=== PATIENT | male | born 1955 | race Caucasian/White ===

== ENCOUNTER 2017-02-06 17:35 | Inpatient (IN) | payer MEDICARE, BC ==
[2017-02-06] MEDS ORDERED: LORazepam 2 MG/ML SYRINGE IV STA (18:06)
[2017-02-06] MEDS ORDERED: SODIUM CHLORIDE 0.9% 1,000 ML with MVI, ADULT NO.4 WITH VIT K 10 ML, THIAMINE 100 MG, F... IV ONE ×4 (18:06)
[2017-02-06] MEDS ORDERED: ONDANSETRON 4 MG/2 ML VIAL IVP STA (18:07)
[2017-02-06] MEDS ORDERED: cloNIDine HCL 0.1 MG TAB PO STA ×3 (18:08→18:49)
--- NOTE | 2017-02-06 18:12 | ED ---
Recheck HPI - General Chief Complaint: Recheck/Abnormal Lab/Rx Stated Complaint: DETOX Time Seen by Provider: 02/06/17 17:48 Source: patient, family, RN notes reviewed Mode of arrival: ambulatory Limitations: no limitations - History of Present Illness Initial Comments: This is a 61-year-old male with a history of alcoholism who states he normally drinks about one fifth of liquor a day who states his last drink was 3 days ago he started having shakes nausea and vomiting a day later. He states he's never gone through DTs before and certainly never anything this bad. He's had no history of seizures no blurry vision he does have generalized shaking he also states he has some numbness to his lower extremities but he relates that to his low back surgery days had in the past. He's had nausea vomiting no diarrhea he denies any fevers chills sweats he does have a mild cough he is a smoker 1 pack of cigarettes per day. No phlegm production no dysuria no hematuria. MD Complaint: other - Related Data Home Medications Medication Instructions Recorded Confirmed Albuterol Nebulized [Ventolin 2.5 mg INHALATION RT-Q6H PRN 02/06/17 02/06/17 Nebulized] Hydrocodone/Acetaminophen [Vicodin 1 tab PO QID PRN 02/06/17 02/06/17 Es 7.5-300 mg Tablet] Lisinopril [Prinivil] 20 mg PO DAILY 02/06/17 02/06/17 Allergies Allergy/AdvReac Type Severity Reaction Status Date / Time No Known Allergies Allergy Verified 02/06/17 18:52 Review of Systems ROS Statement: Those systems with pertinent positive or pertinent negative responses have been documented in the HPI. ROS Other: All systems not noted in ROS Statement are negative. Past Medical History Past Medical History: COPD, Hypertension Additional Past Medical History / Comment(s): ETOH abuse, chronic back pain History of Any Multi-Drug Resistant Organisms: None Reported Past Surgical History: Back Surgery, Orthopedic Surgery Past Psychological History: No Psychological Hx Reported Smoking Status: Current every day smoker Past Alcohol Use History: Heavy Past Drug Use History: Prescription Drug Abuse General Exam - General Exam Comments Initial Comments: This is a well-developed well-nourished awake alert oriented history male he does demonstrate generalized shaking. Limitations: no limitations General appearance: alert, anxious, in distress Head exam: Present: atraumatic, normocephalic, normal inspection Eye exam: Present: normal appearance, PERRL, EOMI. Absent: scleral icterus, conjunctival injection, periorbital swelling ENT exam: Present: mucous membranes dry Neck exam: Present: normal inspection. Absent: tenderness, meningismus, lymphadenopathy Respiratory exam: Present: normal lung sounds bilaterally. Absent: respiratory distress, wheezes, rales, rhonchi, stridor Cardiovascular Exam: Present: normal rhythm, tachycardia. Absent: systolic murmur, diastolic murmur, rubs, gallop, clicks GI/Abdominal exam: Present: soft, normal bowel sounds. Absent: distended, tenderness, guarding, rebound, rigid Extremities exam: Present: normal inspection, full ROM, normal capillary refill. Absent: tenderness, pedal edema, joint swelling, calf tenderness Back exam: Present: normal inspection Neurological exam: Present: alert, oriented X3, CN II-XII intact, other ( Generalized tremors) Psychiatric exam: Present: anxious Skin exam: Present: warm, dry, intact, normal color. Absent: rash Course Vital Signs 02/06/17 02/06/17 02/06/17 17:38 18:22 19:05 Temperature 98 F Pulse Rate 120 H 82 103 H Respiratory 22 18 18 Rate Blood Pressure 153/99 142/107 111/70 O2 Sat by Pulse 99 99 98 Oximetry 02/06/17 19:41 Temperature 98.0 F Pulse Rate 96 Respiratory 18 Rate Blood Pressure 106/74 O2 Sat by Pulse 98 Oximetry Medical Decision Making - Medical Decision Making Patient is feeling slightly better did discuss findings with him and family members patient will be admitted for treatment of impending DTs - Lab Data Result diagrams: 02/06/17 18:25 02/06/17 18:25 Lab Results 02/06/17 02/06/17 02/06/17 Range/Units 18:25 18:25 18:25 WBC 9.5 (3.8-10.6) k/uL RBC 3.90 L (4.30-5.90) m/uL Hgb 13.2 (13.0-17.5) gm/dL Hct 37.8 L (39.0-53.0) % MCV 97.2 (80.0-100.0) fL MCH 33.8 (25.0-35.0) pg MCHC 34.8 (31.0-37.0) g/dL RDW 15.5 (11.5-15.5) % Plt Count 189 (150-450) k/uL Neutrophils % 58 % Lymphocytes % 31 % Monocytes % 6 % Eosinophils % 1 % Basophils % 0 % Neutrophils # 5.5 (1.3-7.7) k/uL Lymphocytes # 2.9 (1.0-4.8) k/uL Monocytes # 0.6 (0-1.0) k/uL Eosinophils # 0.1 (0-0.7) k/uL Basophils # 0.0 (0-0.2) k/uL Sodium 129 L (137-145) mmol/L Potassium 3.3 L (3.5-5.1) mmol/L Chloride 88 L (98-107) mmol/L Carbon Dioxide 24 (22-30) mmol/L Anion Gap 17 mmol/L BUN 10 (9-20) mg/dL Creatinine 0.83 (0.66-1.25) mg/dL Est GFR (MDRD) Af Amer >60 (>60 ml/min/1.73 sqM) Est GFR (MDRD) Non-Af >60 (>60 ml/min/1.73 sqM) Glucose 114 H (74-99) mg/dL Calcium 9.2 (8.4-10.2) mg/dL Magnesium 1.3 L (1.6-2.3) mg/dL Total Bilirubin 1.5 H (0.2-1.3) mg/dL AST 143 H (17-59) U/L ALT 116 H (21-72) U/L Alkaline Phosphatase 154 H (38-126) U/L Total Creatine Kinase 100 (55-170) U/L CK-MB (CK-2) 0.9 (0.0-2.4) ng/mL CK-MB (CK-2) Rel Index 0.9 Total Protein 7.5 (6.3-8.2) g/dL Albumin 4.2 (3.5-5.0) g/dL Amylase 50 (30-110) U/L Lipase 255 (23-300) U/L Serum Alcohol <10 mg/dL - Radiology Data Radiology results: report reviewed (I did review the imaging and reports no evidence of acute findings.), image reviewed Disposition Clinical Impression: Alcohol withdrawal seizure with complication, Hypokalemia, Hypomagnesemia syndrome, Dehydration Disposition: ADMITTED IP TO THIS HOSP Condition: Stable Referrals: Star Glover DO [Primary Care Provider] - 1-2 days
[2017-02-06 18:34] LABS: Basophils % (A) 0 %; CH 33.7; CHCM 34.8; Eosinophils # (A) 0.1 k/uL (0-0.7); Eosinophils % (A) 1 %; HCT 37.8 % (39.0-53.0); HDW 2.12; HGB 13.2 gm/dL (13.0-17.5); Luc # (Auto) 0.38; Luc % (Auto) 4; Lymphocytes # (A) 2.9 k/uL (1.0-4.8); Lymphocytes % (A) 31 %; MCH 33.8 pg (25.0-35.0); MCHC 34.8 g/dL (31.0-37.0); MCV 97.2 fL (80.0-100.0); Mean Platelet Volume 7.8; Monocytes # (A) 0.6 k/uL (0-1.0); Monocytes % (A) 6 %; Neutrophils # (A) 5.5 k/uL (1.3-7.7); Neutrophils % (A) 58 %; RDW 15.5 % (11.5-15.5); WBC 9.5 k/uL (3.8-10.6); WBC (Perox) 9.23
--- NOTE | 2017-02-06 18:43 | XR ---
EXAMINATION TYPE: XR chest 2V DATE OF EXAM: 02/06/2017 COMPARISON: 07/30/2013 HISTORY: Shortness of breath TECHNIQUE: Frontal and lateral views of the chest are obtained. FINDINGS: Scattered senescent parenchymal changes noted. Hyperinflation compatible with COPD. No evidence for infiltrate. No evidence for atelectasis. Heart size is stable. Mediastinal structures are stable and grossly unremarkable. No evidence for hilar prominence. Degenerative changes dorsal spine. IMPRESSION: 1. No evidence for acute pulmonary disease.
[2017-02-06 18:45] LABS: ALT 116 U/L (21-72); AST 143 U/L (17-59); Alcohol <10 mg/dL; Alkaline Phosphatase 154 U/L (38-126); Amylase 50 U/L (30-110); Anion Gap 17 mmol/L; Blood Urea Nitrogen 10 mg/dL (9-20); Calcium 9.2 mg/dL (8.4-10.2); Carbon Dioxide 24 mmol/L (22-30); Chloride 88 mmol/L (98-107); Glucose 114 mg/dL (74-99); Magnesium 1.3 mg/dL (1.6-2.3); Non-African American GFR(MDRD) >60 (>60 ml/min/1.73 sqM); Potassium 3.3 mmol/L (3.5-5.1); Sodium 129 mmol/L (137-145); Total Bilirubin 1.5 mg/dL (0.2-1.3); Total Protein 7.5 g/dL (6.3-8.2)
[2017-02-06 18:59] LABS: Creatine Kinase MB 0.9 ng/mL (0.0-2.4)
[2017-02-06] MEDS ORDERED: MAGNESIUM SULFATE-D5W PMX 1 GM in DEXTROSE/WATER 1 100ML.BAG IVPB ONE (19:07)
[2017-02-06] MEDS ORDERED: ONDANSETRON 4 MG/2 ML VIAL IVP PRN (19:56)
[2017-02-06] MEDS ORDERED: NALOXONE 0.4 MG/ML 1 ML VIAL IV PRN (19:56)
[2017-02-06] MEDS ORDERED: LORazepam 2 MG/ML SYRINGE IV PRN ×3 (19:58)
[2017-02-06] MEDS ORDERED: THIAMINE 100 MG/ML 2 ML VIAL IM STA (19:58)
[2017-02-06] MEDS: THIAMINE 100 MG TAB PO SCH (22:22)
[2017-02-06 22:23] VITALS: RESP 16
[2017-02-06] MEDS ORDERED: ALBUTEROL NEBULIZED 2.5 MG/3 ML INHALATION PRN (22:42)
[2017-02-06] MEDS: HYDROcodone/APAP 7.5-325MG 1 EACH TAB PO PRN (23:35)
[2017-02-06] MEDS: HEPARIN SODIUM,PORCINE 5,000 UNIT/ML 1 ML VIAL SQ SCH (23:35)
[2017-02-06] MEDS: 0.9% NACL WITH KCL 20 MEQ/L 1,000 ML IV SCH (23:37)
[2017-02-07] MEDS: 0.9% NACL WITH KCL 20 MEQ/L 1,000 ML IV SCH ×3 (05:23→16:24)
[2017-02-07] MEDS: HEPARIN SODIUM,PORCINE 5,000 UNIT/ML 1 ML VIAL SQ SCH (08:41)
[2017-02-07] MEDS: HYDROcodone/APAP 7.5-325MG 1 EACH TAB PO PRN ×2 (08:49→15:02)
[2017-02-07 08:54] LABS: Anion Gap 10 mmol/L; Blood Urea Nitrogen 9 mg/dL (9-20); Calcium 8.4 mg/dL (8.4-10.2); Carbon Dioxide 27 mmol/L (22-30); Chloride 96 mmol/L (98-107); Glucose 87 mg/dL (74-99); Magnesium 1.8 mg/dL (1.6-2.3); Non-African American GFR(MDRD) >60 (>60 ml/min/1.73 sqM); Sodium 133 mmol/L (137-145)
[2017-02-07 08:58] LABS: Basophils % (A) 1 %; CH 33.2; CHCM 33.4; Eosinophils # (A) 0.1 k/uL (0-0.7); Eosinophils % (A) 1 %; HCT 35.3 % (39.0-53.0); HDW 2.15; HGB 11.8 gm/dL (13.0-17.5); Luc # (Auto) 0.27; Luc % (Auto) 4; Lymphocytes % (A) 41 %; MCH 33.4 pg (25.0-35.0); MCHC 33.5 g/dL (31.0-37.0); MCV 99.7 fL (80.0-100.0); Macrocytosis Slight; Mean Platelet Volume 8.5; Monocytes # (A) 0.3 k/uL (0-1.0); Monocytes % (A) 5 %; Neutrophils # (A) 3.6 k/uL (1.3-7.7); Neutrophils % (A) 49 %; RBC 3.54 m/uL (4.30-5.90); RDW 15.4 % (11.5-15.5); WBC 7.3 k/uL (3.8-10.6); WBC (Perox) 7.05
[2017-02-07] MEDS ORDERED: NICOTINE 21MG/24HR PATCH TRANSDERM SCH (09:00)
[2017-02-07] MEDS ORDERED: LISINOPRIL 20 MG TAB PO SCH (09:00)
[2017-02-07] MEDS ORDERED: Potassium Replacement Protocol 1 EACH MISC MISCELLANE PRN (09:24)
[2017-02-07] MEDS: POTASSIUM CHLORIDE 10 MEQ, LIDOCAINE 2% INJ 10 MG in SODIUM CHLORIDE 0.9% 100 ML IV SCH ×2 (10:32→11:42)
[2017-02-07 11:34] LABS: ALT 137 U/L (21-72); AST 188 U/L (17-59); Alkaline Phosphatase 167 U/L (38-126); Total Bilirubin 0.9 mg/dL (0.2-1.3); Total Protein 6.3 g/dL (6.3-8.2)
[2017-02-07] MEDS: THIAMINE 100 MG TAB PO SCH (11:52)
--- NOTE | 2017-02-07 12:18 | P.HPIM ---
History of Present Illness This is a 61-year-old male with a history of alcoholism who states drinks about one fifth of liquor a day who states his last drink was 4 days ago he started having shakes nausea and vomiting a day later. He states he's never gone through DTs before and certainly never anything this bad. He's had no history of seizures no blurry vision he does have generalized shaking he also states he has some numbness to his lower extremities but he relates that to his low back surgery days had in the past. He's had nausea vomiting no diarrhea he denies any fevers chills sweats he does have a mild cough he is a smoker 1 pack of cigarettes per day. No phlegm production no dysuria no hematuria. Patient apparently had some falls to at home secondary to all call abuse. Patient was a alcohol withdrawal precautions here patient is not requiring Ativan often since his last drink was about 4-5 days ago. We will have physical therapy and occupational therapy valid the patient and after that patient will be the discharge home if he is strong enough depending on physical therapy recommendations. Review of Systems REVIEW OF SYSTEMS: CONSTITUTIONAL: No fever, no malaise, no fatigue. HEENT: No recent visual problems or hearing problems. Denied any sore throat. CARDIOVASCULAR: No chest pain, orthopnea, PND, no palpitations, no syncope. PULMONARY: No shortness of breath, no cough, no hemoptysis. GASTROINTESTINAL: No diarrhea, no abdominal pain. Normoactive bowel sounds. NEUROLOGICAL: No headaches, no weakness, no numbness. HEMATOLOGICAL: Denies any bleeding or petechiae. GENITOURINARY: Denies any burning micturition, frequency, or urgency. MUSCULOSKELETAL/RHEUMATOLOGICAL: Denies any joint pain, swelling, or any muscle pain. ENDOCRINE: Denies any polyuria or polydipsia. The rest of the 14-point review of systems is negative. Past Medical History Past Medical History: COPD, Hypertension Additional Past Medical History / Comment(s): ETOH abuse, chronic back pain, aortic aneurysm 0.3 in size History of Any Multi-Drug Resistant Organisms: None Reported Past Surgical History: Back Surgery, Orthopedic Surgery Past Anesthesia/Blood Transfusion Reactions: No Reported Reaction Past Psychological History: No Psychological Hx Reported Smoking Status: Current every day smoker Past Alcohol Use History: Heavy Past Drug Use History: Prescription Drug Abuse Medications and Allergies Home Medications Medication Instructions Recorded Confirmed Type Albuterol Nebulized [Ventolin 2.5 mg INHALATION RT-Q6H PRN 02/06/17 02/06/17 History Nebulized] Hydrocodone/Acetaminophen [Vicodin 1 tab PO QID PRN 02/06/17 02/06/17 History Es 7.5-300 mg Tablet] Lisinopril [Prinivil] 20 mg PO DAILY 02/06/17 02/06/17 History Allergies Allergy/AdvReac Type Severity Reaction Status Date / Time No Known Allergies Allergy Verified 02/06/17 18:52 Physical Exam Vitals: Vital Signs Temp Pulse Pulse Resp BP BP Pulse Ox 02/07/17 07:00 97.8 F 92 16 96/61 94 L 02/06/17 22:22 98.0 F 88 16 102/71 98 02/06/17 20:00 91 18 100/58 99 02/06/17 19:41 98.0 F 96 18 106/74 98 02/06/17 19:05 103 H 18 111/70 98 02/06/17 18:22 82 18 142/107 99 02/06/17 17:38 98 F 120 H 22 153/99 99 Intake and Output 02/06/17 02/07/17 02/07/17 22:59 06:59 14:59 Intake Total 360 Balance 360 Intake: Oral 360 Other: Voiding Method Urinal Weight 59.421 kg PHYSICAL EXAMINATION: GENERAL: The patient is alert and oriented x3, not in any acute distress. Well developed, well nourished. HEENT: Pupils are round and equally reacting to light. EOMI. No scleral icterus. No conjunctival pallor. Normocephalic, atraumatic. No pharyngeal erythema. No thyromegaly. CARDIOVASCULAR: S1 and S2 present. No murmurs, rubs, or gallops. PULMONARY: Chest is clear to auscultation, no wheezing or crackles. ABDOMEN: Soft, nontender, nondistended, normoactive bowel sounds. No palpable organomegaly. MUSCULOSKELETAL: No joint swelling or deformity. EXTREMITIES: No cyanosis, clubbing, or pedal edema. NEUROLOGICAL: Gross neurological examination did not reveal any focal deficits. Patient appears to have generalized weakness and mild tremor. SKIN: No rashes. Results CBC & Chem 7: 02/07/17 08:16 02/07/17 08:16 Labs: Abnormal Lab Results - Last 24 Hours (Table) 02/06/17 02/06/17 02/07/17 Range/Units 18:25 18:25 08:16 RBC 3.90 L 3.54 L (4.30-5.90) m/uL Hgb 11.8 L (13.0-17.5) gm/dL Hct 37.8 L 35.3 L (39.0-53.0) % Sodium 129 L (137-145) mmol/L Potassium 3.3 L (3.5-5.1) mmol/L Chloride 88 L (98-107) mmol/L Glucose 114 H (74-99) mg/dL Magnesium 1.3 L (1.6-2.3) mg/dL Total Bilirubin 1.5 H (0.2-1.3) mg/dL AST 143 H (17-59) U/L ALT 116 H (21-72) U/L Alkaline Phosphatase 154 H (38-126) U/L Albumin (3.5-5.0) g/dL 02/07/17 Range/Units 08:16 RBC (4.30-5.90) m/uL Hgb (13.0-17.5) gm/dL Hct (39.0-53.0) % Sodium 133 L (137-145) mmol/L Potassium 3.0 L* (3.5-5.1) mmol/L Chloride 96 L (98-107) mmol/L Glucose (74-99) mg/dL Magnesium (1.6-2.3) mg/dL Total Bilirubin (0.2-1.3) mg/dL AST 188 H (17-59) U/L ALT 137 H (21-72) U/L Alkaline Phosphatase 167 H (38-126) U/L Albumin 3.3 L (3.5-5.0) g/dL Thrombosis Risk Factor Assmnt - Choose All That Apply Each Risk Factor Represents 2 Points: Age 61-74 years Thrombosis Risk Factor Assessment Total Risk Factor Score: 2 Thrombosis Risk Factor Assessment Level: Low Risk Assessment and Plan Plan: #1 alcohol abuse: Patient recently quit alcohol patient received IV fluids and patient will receive thiamine and multivitamin supplementation. #2 alcohol withdrawal: Patient is not having significant withdrawals at this point of time his requirement for Ativan is less frequent. Patient can be discharged from this perspective. #3 all call he Damien acute: Patient has mildly elevated liver enzymes expected to improve since he quit alcohol. #4 hyponatremia: Hypovolemic hyponatremia from severe intravascular volume depletion from all call abuse. Patient was on IV fluids with improvement in his sodium. #5 hypomagnesemia and hypokalemia: Seconded all call abuse both of which will be supplemented. #6 significant generalized weakness: Secondary to chronic all call use patient will be discharged after physical therapy evaluation and occupational therapy evaluation. #7 COPD: Patient doesn't have any acute exacerbation at this point of time #8 hypertension: Patient is actually hypotensive will not require his lisinopril and hydrochlorothiazide combination pill upon discharge.
[2017-02-07 14:16] LABS: Anion Gap 7 mmol/L; Blood Urea Nitrogen 10 mg/dL (9-20); Calcium 8.6 mg/dL (8.4-10.2); Carbon Dioxide 28 mmol/L (22-30); Chloride 98 mmol/L (98-107); Glucose 103 mg/dL (74-99); Non-African American GFR(MDRD) >60 (>60 ml/min/1.73 sqM); Potassium 4.4 mmol/L (3.5-5.1); Sodium 133 mmol/L (137-145)
[2017-02-07 15:37] VITALS: BP 119/72; PULSE 69; TEMP 97.4
== END 2017-02-07 16:26 | disposition home health service (06) | DRG 897 ==
LOC: EC 17:35 → 4MS4W 19:56
PROVIDERS: ADMIT Internal Medicine; ATTEND Internal Medicine
DX: F10.239 Alcohol dependence with withdrawal, unspecified (principal); I95.9 Hypotension, unspecified; R56.9 Unspecified convulsions; K70.10 Alcoholic hepatitis without ascites; E87.1 Hypo-osmolality and hyponatremia; E83.42 Hypomagnesemia; I10 Essential (primary) hypertension; E86.9 Volume depletion, unspecified; E87.6 Hypokalemia; F17.200 Nicotine dependence, unspecified, uncomplicated; J44.9 Chronic obstructive pulmonary disease, unspecified; Z79.899 Other long term (current) drug therapy; E86.0 Dehydration; M54.9 Dorsalgia, unspecified; G89.29 Other chronic pain; I71.4 Abdominal aortic aneurysm, without rupture; R53.1 Weakness; R11.2 Nausea with vomiting, unspecified
CPT/HCPCS: 36415; 71020; 80048; 80053; 80320; 82150; 82550; 82553; 83690; 83735; 85025; 96365; 96366; 96368; 96375; 99285

== ENCOUNTER → 2018-04-09 | Outpatient (CLI) | payer MEDICARE ==
--- NOTE | 2018-04-09 09:19 | US ---
EXAMINATION TYPE: US duplex aorta DATE OF EXAM: 04/09/2018 COMPARISON: NONE CLINICAL HISTORY: I71.4 Abominal Aortic Aneurysm without rupture. EXAM MEASUREMENTS: Abdominal Aorta: Proximal: 2.4 x 2.4 cm Mid: 2.0 x 1.7 cm Distal: 3.0 x 3.3 cm Bifurcation: obscured by gas IMPRESSION: Infrarenal fusiform aneurysm measuring 8.2 cm in long ais x 3.3 cm. tranversely
== END ==
LOC: RADUSWWP 08:46
PROVIDERS: ATTEND Internal Medicine
DX: I71.4 Abdominal aortic aneurysm, without rupture (principal)
CPT/HCPCS: 93979

== ENCOUNTER 2018-06-24 19:57 | Emergency (ER) | payer MEDICARE ==
[2018-06-24 20:01] VITALS: TEMP 97.9
[2018-06-24] MEDS ORDERED: GLUCAGON 1 MG/ML VIAL IVP STA (20:17)
[2018-06-24] MEDS ORDERED: SODIUM CHLORIDE 0.9% 1,000 ML IV STA (20:17)
[2018-06-24] MEDS ORDERED: DIAZEPAM 5 MG/ML 2 ML INJ IVP STA (20:17)
[2018-06-24] MEDS ORDERED: NITROGLYCERIN SL TABS 0.4 MG TAB SUBLINGUAL STA (20:17)
--- NOTE | 2018-06-24 20:20 | ED ---
Skin/Abscess/FB HPI - General Chief complaint: Skin/Abscess/Foreign Body Stated complaint: FB in throat Time Seen by Provider: 06/24/18 20:16 Source: patient, family, RN notes reviewed, old records reviewed Mode of arrival: wheelchair Limitations: no limitations - History of Present Illness Initial comments: This is a 62-year-old male the ER for evaluation presents today for evaluation regards to likely foreign body. Patient has history of esophageal foreign bodies. Patient was eating some chicken related to got stuck in his throat and has been unable to tolerate secretions since. Patient denies any other complaints MD complaint: foreign body (Esophageal) Location: chest Severity: mild Quality: aching Consistency: constant Improves with: none Context: none Associated symptoms: denies other symptoms Treatments Prior to Arrival: none - Related Data Home Medications Medication Instructions Recorded Confirmed Lisinopril [Zestril] 20 mg PO DAILY 06/24/18 06/24/18 Multivitamins, Thera [Multivitamin 1 tab PO DAILY 06/24/18 06/24/18 (formulary)] Tiotropium Starr [Spiriva] 1 cap INHALATION RT-DAILY 06/24/18 06/24/18 tiZANidine HCL [Zanaflex] 6 mg PO Q8HR PRN 06/24/18 06/24/18 Allergies Allergy/AdvReac Type Severity Reaction Status Date / Time No Known Allergies Allergy Verified 06/24/18 20:11 Review of Systems ROS Statement: Those systems with pertinent positive or pertinent negative responses have been documented in the HPI. ROS Other: All systems not noted in ROS Statement are negative. Past Medical History Past Medical History: COPD, Hypertension Additional Past Medical History / Comment(s): ETOH abuse, chronic back pain, aortic aneurysm 0.3 in size History of Any Multi-Drug Resistant Organisms: None Reported Past Surgical History: Back Surgery, Orthopedic Surgery Past Anesthesia/Blood Transfusion Reactions: No Reported Reaction Past Psychological History: No Psychological Hx Reported Smoking Status: Current every day smoker Past Alcohol Use History: Heavy Past Drug Use History: Prescription Drug Abuse General Exam - General Exam Comments Initial Comments: Inability to tolerate secretions Limitations: no limitations General appearance: alert, in no apparent distress Head exam: Present: atraumatic, normocephalic, normal inspection Eye exam: Present: normal appearance, PERRL, EOMI. Absent: scleral icterus, conjunctival injection, periorbital swelling ENT exam: Present: normal exam, mucous membranes moist Neck exam: Present: normal inspection. Absent: tenderness, meningismus, lymphadenopathy Respiratory exam: Present: normal lung sounds bilaterally. Absent: respiratory distress, wheezes, rales, rhonchi, stridor Cardiovascular Exam: Present: regular rate, normal rhythm, normal heart sounds. Absent: systolic murmur, diastolic murmur, rubs, gallop, clicks GI/Abdominal exam: Present: soft, normal bowel sounds. Absent: distended, tenderness, guarding, rebound, rigid Extremities exam: Present: normal inspection, full ROM, normal capillary refill. Absent: tenderness, pedal edema, joint swelling, calf tenderness Back exam: Present: normal inspection Neurological exam: Present: alert, oriented X3, CN II-XII intact Psychiatric exam: Present: normal affect, normal mood Skin exam: Present: warm, dry, intact, normal color. Absent: rash Course Vital Signs 06/24/18 06/24/18 06/24/18 19:58 20:46 21:58 Temperature 97.9 F Pulse Rate 106 H 114 H 92 Respiratory 20 18 18 Rate Blood Pressure 150/97 128/95 139/102 O2 Sat by Pulse 99 96 97 Oximetry 06/24/18 22:25 Temperature Pulse Rate 85 Respiratory 18 Rate Blood Pressure 166/96 O2 Sat by Pulse 96 Oximetry - Reevaluation(s) Reevaluation #1: 06/24/18 22:56 Medical records reviewed Reevaluation #2: 06/24/18 22:56 GI see patient in the emergency room, foreign body resolved Reevaluation #3: 06/24/18 22:56 Patient back to baseline able to discharge home Medical Decision Making - Medical Decision Making 62 male the ER for evaluation presents today for evaluation regards to esophageal foreign body, this is improved here in the emergency room and patient can be discharged home - Radiology Data Radiology results: report reviewed (Chest x-rays negative), image reviewed Disposition Clinical Impression: Esophageal foreign body Disposition: ADMITTED IP TO THIS HOSP Is patient prescribed a controlled substance at d/c from ED?: No Referrals: Fartun Hunter MD [Primary Care Provider] - 1-2 days
[2018-06-24] MEDS: MAGNESIUM SULFATE-D5W PMX 1 GM in DEXTROSE/WATER 1 100ML.BAG IVPB SCH ×2 (20:45→22:25)
[2018-06-24 20:46] VITALS: RESP 18
--- NOTE | 2018-06-24 21:21 | XR ---
EXAMINATION: XR chest 1V portable DATE AND TIME: 06/24/2018 9:11 PM CLINICAL INDICATION: PHH; Pain TECHNIQUE: AP upright portable COMPARISON: 02/06/2017 FINDINGS: The lungs are clear. The pleural spaces are negative. The cardiac silhouette is not enlarged. The remainder of the mediastinal silhouette is unremarkable. The skeletal structures and soft tissues are negative for acute findings. IMPRESSION: NO ACUTE PROCESS.
[2018-06-24 22:27] VITALS: PULSE 85
[2018-06-24] MEDS ORDERED: LACTATED RINGERS 500 ML IV ONE (22:55)
[2018-06-24] MEDS ORDERED: PROPOFOL 10 MG/ML 20 ML VIAL IV ONE (23:00)
[2018-06-24] MEDS ORDERED: LIDOCAINE 1% INJ 10MG/ML (20 ML MDV) ONE (23:00)
[2018-06-24 23:19] VITALS: BP 117/70
--- NOTE | 2018-06-25 00:13 | ED ---
Disposition Clinical Impression: Esophageal foreign body Disposition: ADMITTED IP TO THIS HOSP Condition: Good Instructions: Esophageal Foreign Body (ED) Is patient prescribed a controlled substance at d/c from ED?: No Referrals: García Moore MD [STAFF PHYSICIAN] - 1-2 days
--- NOTE | 2018-06-25 05:22 | PCN ---
PROCEDURE NOTE This is a patient of the emergency room and patient of Dr. Fartun Hunter. DATE OF SERVICE: June 24, 2018. PROCEDURE: Esophagogastroscopy and removal of esophageal foreign body and biopsy of the esophagus. PREOPERATIVE DIAGNOSIS: Obstructive dysphagia. POSTOPERATIVE DIAGNOSES: 1. Impacted piece of meat in the proximal esophagus, advanced into the stomach with gentle pressure of the endoscope. 2. Hiatal hernia. 3. 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 Preparation and sedation were provided by Anesthesia. BRIEF CLINICAL HISTORY: The patient is a 62-year-old male who presented to the emergency room with obstructive dysphagia, unable to eat or drink following eating chicken meat at around 5 p.m. tonight. The patient apparently has been having similar episodes that he can manage himself around once or twice a month for the last year or so. He had a recent upper endoscopy, which apparently was not revealing. This evaluation is for urgent removal of foreign body. PROCEDURE: With the patient on his left lateral decubitus position and after informed consent and adequate sedation, I passed the Olympus GIF-H 190 video upper endoscope through the cricopharyngeus. I suctioned some secretions and food debris in the proximal esophagus. Then the impacted pieces of meat were seen in the proximal esophagus, which I was able to gently advance with the endoscope down the esophagus all the way down to the stomach. Once this was accomplished, I observed the esophagus to have corrugations and in the proximal esophagus, there was the appearance of fine strictures that would not impede the advancement of the endoscope. In the mid esophagus, there were sticky whitish exudates raising the possibility of Clarice esophagitis as well. The GE junction was around 40 cm from the incisors and there was a hiatal hernia. No obvious abnormalities were noted in the stomach. There was a lot of food and secretions that made me not distend the stomach or try to get into the duodenum on this exam today. Instead, I spent some time obtaining biopsies in the esophagus to rule out is eosinophilic esophagitis, Clarice esophagitis, or other pathology. The patient tolerated the procedure well. PLAN: The patient was reassured. I advised that he stay on clear liquid diet today and he can advance his diet tomorrow as tolerated and I advised that he should be careful with milk and he should chew well and I would like to see him in followup in 2 weeks or so in the office and based on the findings, I will make additional recommendations regarding his care. I will keep you updated on his progress. This was done in the emergency room [facility]. EDGAR / ERLINDA: [id number] /
== END 2018-06-25 00:20 | disposition other institution (70) ==
LOC: EC 19:57
DX: T17.228A Food in pharynx causing other injury, initial encounter (principal); J44.9 Chronic obstructive pulmonary disease, unspecified; I10 Essential (primary) hypertension; F17.200 Nicotine dependence, unspecified, uncomplicated; Z79.899 Other long term (current) drug therapy
CPT/HCPCS: 71045; 99285; 96365; 96375 ×2; J1610; J3360; J3475; 43239

== ENCOUNTER 2018-11-25 11:12 | Day surgery (SDC) | payer MEDICARE ==
[2018-11-21 11:31] VITALS: BMI 24.0
[~2018-11-25 11:12] MED LIST: LACTATED RINGERS 1,000 ML IV SCH
[2018-11-25 11:21] VITALS: TEMP 97.8
[2018-11-25] MEDS ORDERED: LIDOCAINE 1% 20 ML VIAL (10MG/ML) FOR IV START INTRADERMA ONE (11:34)
[2018-11-25] MEDS ORDERED: LIDOCAINE 1% INJ 10MG/ML (20 ML MDV) ONE (12:19)
[2018-11-25] MEDS ORDERED: PROPOFOL 10 MG/ML 20 ML VIAL IV ONE (12:19)
[2018-11-25] MEDS ORDERED: MIDAZOLAM 2 MG/2 ML VIAL ONE (12:19)
[2018-11-25] MEDS ORDERED: fentaNYL (PF) 50 MCG/ML 2 ML AMP ONE (12:19)
[2018-11-25 12:40] VITALS: RESP 16
--- NOTE | 2018-11-25 12:45 | P.PCN ---
Date of Procedure: 11/25/18 Procedure(s) Performed: Procedure: Esophagogastroduodenoscopy and biopsy. Preoperative diagnosis: Dysphagia and history of Clarice esophagitis and an episode of obstructive dysphagia in June 2018. Postoperative diagnosis: 1. Mild corrugations in the proximal esophagus but no obvious esophagitis or strictures or any definite hiatal hernia. 2. Mild gastritis and duodenitis. 3. Multiple biopsies obtained from the duodenum, antrum and esophagus. Preparation and sedation: Was provided by anesthesia. Brief clinical history: The patient a 63-year-old male who I have evaluated in the office in September of this yeat because of dysphagia. I have seen him in the emergency room in June 2018 when he presented with obstructive dysphagia with a piece of meat lodged in his esophagus. At that time, I noted corrugated esophagus and Clarice esophagitis. The biopsies confirmed Clarice esophagitis for which he was treated recently but remains symptomatic. This evaluation is to assess for various etiology of dysphagia. Procedure: With the patient on his left lateral decubitus position and after in formed consent and adequate sedation, I passed the Olympus-GIF H190 video upper endoscope through the cricopharyngeus down the esophagus. The esophagus showed mild corrugations in the proximal esophagus but no obvious esophagitis or exudates. No definite hiatal hernia or any strictures. GE junction was around 42-43 cm from the incisors. The endoscope was then passed into the stomach which was insufflated with air and inspected in detail including the retroflex view in the cardia. There was some mottling and erythema in the antrum but no ulcers or erosions. Pyloric channel did not show any ulcers. Duodenal bulb post bulbar area and descending duodenum showed some erythema and minimal friability but no ulcers, erosions or bleeding. I obtained biopsies from the duodenum, antrum as well as multiple biopsies from the esophagus then the endoscope was withdrawn. The patient tolerated the procedure well. Plan: The patient was reassured. Will await biopsy results and make further fabiola ns based on his course and biopsy results. I will keep you updated on his progress.
[2018-11-25 12:50] VITALS: BP 118/81; PULSE 79
== END 2018-11-25 13:11 | disposition home or self-care (01) ==
LOC: ORWHC2ENDO 11:12
DX: K29.70 Gastritis, unspecified, without bleeding (principal); K29.80 Duodenitis without bleeding; K22.9 Disease of esophagus, unspecified; Z87.19 Personal history of other diseases of the digestive system; I10 Essential (primary) hypertension; J44.9 Chronic obstructive pulmonary disease, unspecified; F17.210 Nicotine dependence, cigarettes, uncomplicated; Z79.891 Long term (current) use of opiate analgesic; Z79.899 Other long term (current) drug therapy
CPT/HCPCS: 88305; 43239; J2250; J2001; J3010; J2704

== ENCOUNTER → 2020-05-30 | Outpatient (CLI) | payer MEDICARE ==
--- NOTE | 2020-05-31 03:02 | MR ---
EXAMINATION TYPE: MR lumbar spine wo/w con DATE OF EXAM: 05/30/2020 COMPARISON: None HISTORY: Lower Back Pain CONTRAST: Standard multiplanar, multisequence MRI departmental protocol utilizing 7 mL intravenous Gadavist shruthi olinium contrast. Lumbar vertebra have normal alignment. There is posterior fusion surgery from L2 to L5 with screws an d rods posteriorly. There is narrowing of disc spaces from L1 to S1. There is no compression fracture . I see no evidence of any significant spinal stenosis. There is mild posterior disc bulging at L1-2 centrally and towards the right side. There is no lumbar paraspinal mass. I see no bony destructive p rocess. The visualized sacroiliac joints are intact. Exam limited slightly by metal artifact. Lumbar nerve roots appear within normal limits. The contrast images show no pathologic enhancement. Nerve ro ots do not enhance. Impression: Multilevel posterior fusion surgery. Degenerative disc space narrowing in the lumbar spine. No acute bony abnormality. No spinal stenosis. There is a mild posterior disc bulging centrally into the right side at L1 -2.
--- NOTE | 2020-05-31 03:16 | MR ---
EXAMINATION TYPE: MR cervical spine wo con DATE OF EXAM: 05/30/2020 COMPARISON: None HISTORY: Neck Pain Cervical vertebra have normal alignment. 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 The cervical spinal cord has normal signal pattern . There is small posterior disc bulge at C3-4 without significant impingement on the spinal canal. Th e canal measures 7.5 mm. Cervical spinal cord has normal signal pattern. There is no edema. Brainstem is intact. There is no compression fracture. There is no significant cervical disc space narrowing. There is no evidence of cervical paraspinal mass. IMPRESSION: Small posterior disc bulging at C3-4 level. No spinal stenosis. 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
== END | disposition home or self-care (01) ==
LOC: RADMRIMAIN 16:08
PROVIDERS: ATTEND Anesthesiology Pain Medicine
DX: M48.061 Spinal stenosis, lumbar region without neurogenic claudication (principal); M50.21 Other cervical disc displacement, high cervical region; M51.26 Other intervertebral disc displacement, lumbar region; Z98.1 Arthrodesis status
CPT/HCPCS: 72141; 72158; A9585

== ENCOUNTER 2020-09-06 19:50 | Emergency (ER) | payer MEDICARE ==
[2020-09-06 19:55] VITALS: BP 125/90; PULSE 100; RESP 19; TEMP 97.8
[2020-09-06] MEDS ORDERED: GLUCAGON 1 MG/ML VIAL IVP STA (20:21)
--- NOTE | 2020-09-06 20:21 | ED ---
ENT HPI <Jael Post P - Last Filed: 09/06/20 21:22> - General Source: patient, RN notes reviewed Mode of arrival: ambulatory Limitations: no limitations <Gaston Harris - Last Filed: 09/06/20 21:25> - General Chief complaint: ENT Stated complaint: Hot dog stuck in throat Time Seen by Provider: 09/06/20 20:06 - History of Present Illness Initial comments: Patient is a 65-year-old male that comes emergency department with a esophageal foreign body. He noted that he was eating a hotdog and a piece got stuck in his throat. He noted that he tried drinking water several times with small sips to dislodge it to no avail he would spit up the water. His noted that he had a similar incident about a year ago with a had the scope him to get the foreign body out. He was in no apparent distress or pain while sitting up in bed during exam and interview. He was not short of breath or having any difficulty breathing. He denied any chest pain nausea vomiting diarrhea constipation fever fatigue chills. (Gaston Harris) - Related Data Home Medications Medication Instructions Recorded Confirmed Multivitamins, Thera [Multivitamin 1 tab PO DAILY 06/24/18 11/25/18 (formulary)] lisinopriL [Zestril] 20 mg PO DAILY 06/24/18 11/25/18 tiZANidine HCL [Zanaflex] 6 mg PO Q8HR PRN 06/24/18 11/25/18 Albuterol Nebulizer 1 dose INHALATION DIRECTED PRN 11/21/18 11/25/18 Albuterol Sulfate [Proair Hfa] 1 - 2 puff INHALATION DAILY 11/21/18 11/25/18 HYDROcodone/APAP 7.5-325MG [[place] 1 tab PO TID PRN 11/21/18 11/25/18 7.5-325] Omeprazole Magnesium [PriLOSEC OTC] 20 mg PO DAILY 11/21/18 11/25/18 Allergies Allergy/AdvReac Type Severity Reaction Status Date / Time No Known Allergies Allergy Verified 09/06/20 19:55 Review of Systems ROS Other: All systems not noted in ROS Statement are negative. <Jael Post P - Last Filed: 09/06/20 21:22> ROS Other: All systems not noted in ROS Statement are negative. <HarrisGaston - Last Filed: 09/06/20 21:25> ROS Statement: Those systems with pertinent positive or pertinent negative responses have been documented in the HPI. Past Medical History Past Medical History: COPD, Hypertension, Musculoskeletal Disorder Additional Past Medical History / Comment(s): chronic back pain-has difficulty standing or walking distance., aortic aneurysm , Possible enlarged prostate., having difficulty swallowing. History of Any Multi-Drug Resistant Organisms: None Reported Past Surgical History: Back Surgery, Tonsillectomy Additional Past Surgical History / Comment(s): back surgery x2 Past Anesthesia/Blood Transfusion Reactions: No Reported Reaction Past Psychological History: No Psychological Hx Reported Smoking Status: Current every day smoker Past Alcohol Use History: Occasional Past Drug Use History: None Reported - Past Family History Brother(s) Family Medical History: Cancer <Gaston Harris - Last Filed: 09/06/20 21:25> General Exam Limitations: no limitations General appearance: alert, in no apparent distress Head exam: Present: atraumatic, normocephalic, normal inspection Eye exam: Present: normal appearance, PERRL, EOMI. Absent: scleral icterus, conjunctival injection, periorbital swelling ENT exam: Present: normal exam, mucous membranes moist Neck exam: Present: normal inspection. Absent: tenderness, meningismus, lymphadenopathy Respiratory exam: Present: normal lung sounds bilaterally. Absent: respiratory distress, wheezes, rales, rhonchi, stridor Cardiovascular Exam: Present: regular rate, normal rhythm, normal heart sounds. Absent: systolic murmur, diastolic murmur, rubs, gallop, clicks GI/Abdominal exam: Present: soft, normal bowel sounds. Absent: distended, tenderness, guarding, rebound, rigid Extremities exam: Present: normal inspection, full ROM, normal capillary refill. Absent: tenderness, pedal edema, joint swelling, calf tenderness Back exam: Present: normal inspection Neurological exam: Present: alert, oriented X3, CN II-XII intact Psychiatric exam: Present: normal affect, normal mood Skin exam: Present: warm, dry, intact, normal color. Absent: rash <Gaston Harris - Last Filed: 09/06/20 21:25> Course Vital Signs 09/06/20 19:52 Temperature 97.8 F Pulse Rate 100 Respiratory 19 Rate Blood Pressure 125/90 O2 Sat by Pulse 98 Oximetry Medical Decision Making <Gaston Harris - Last Filed: 09/06/20 21:25> - Medical Decision Making 65-year-old male with foreign body in esophagus. Two-view chest x-ray ordered. We'll attempt to give patient some carbonate beverage to see if they'll dislodge the foreign body. If not IV glucagon will be ordered. Carbonated beverage did not work patient stated up immediately after try to swallow several times. 2 mg of glucagon was ordered to be administered IV. (Gaston Harris) Disposition Is patient prescribed a controlled substance at d/c from ED?: No <Jael Post - Last Filed: 09/06/20 21:22> <Gaston Harris - Last Filed: 09/06/20 21:25> Clinical Impression: Esophageal obstruction due to food impaction Disposition: Left Against Medical Advice Condition: Stable Additional Instructions: Return to the ER for any worsening or development of any new or concerning symptoms Referrals: Fartun Hunter MD [Primary Care Provider] - 1-2 days
--- NOTE | 2020-09-06 20:58 | XR ---
EXAMINATION TYPE: XR chest 2V DATE OF EXAM: 09/06/2020 COMPARISON: 06/24/2018. HISTORY: Chest pain. TECHNIQUE: Frontal and lateral views of the chest are obtained. FINDINGS: There is no focal air space opacity, pleural effusion, or pneumothorax seen. The cardiac silhouette size is within normal limits. The osseous structures are intact. IMPRESSION: No acute cardiopulmonary process.
== END 2020-09-06 21:25 | disposition left against medical advice (07) ==
LOC: EC 19:50
DX: T18.128A Food in esophagus causing other injury, initial encounter (principal); J44.9 Chronic obstructive pulmonary disease, unspecified; I10 Essential (primary) hypertension; F17.200 Nicotine dependence, unspecified, uncomplicated; Z79.899 Other long term (current) drug therapy; Z53.29 Procedure and treatment not carried out because of patient's decision for other reasons; X58.XXXA Exposure to other specified factors, initial encounter
CPT/HCPCS: 71046; 99283; 96374; J1610

== ENCOUNTER → 2021-12-19 | Outpatient (CLI) | payer MEDICARE ==
[2021-12-19 08:32] LABS: African American GFR (CKD) >90 (>60 ml/min/1.73 sqM); Blood Urea Nitrogen 11 mg/dL (9-20); Non-African American GFR(CKD) >90 (>60 ml/min/1.73 sqM)
--- NOTE | 2021-12-19 10:59 | CT ---
EXAMINATION TYPE: CT chest w con DATE OF EXAM: 12/19/2021 COMPARISON: X-ray dated 11/30/2021. No previous CT scan is available for comparison HISTORY: pulmonary lung nodule CT DLP: 188.3 mGycm Automated exposure control for dose reduction was used. TECHNIQUE: CT scan of the chest is performed with IV Contrast, patient injected with 70 mL of Isovue 300. FINDINGS: LUNGS: Moderate to marked COPD changes. Irregular calcified nodule is seen in the left lower lobe rianna suring 16mm, likely representing a calcified granuloma. Irregular elongated infiltration is seen at t he posterior aspect of the right upper lobe measuring up to 2.4 cm in the coronal images, attention o n follow-up. 7 mm pleural-based nodule is seen at the posterior aspect of the right lower lobe. Paten t trachea and main bronchi. No pleural effusion. MEDIASTINUM: Scattered subcentimeter mediastinal and hilar lymph nodes. No pathologically enlarged ly mph nodes in the chest. No gross cardiomegaly. Arterial atherosclerotic calcifications including bree nary calcifications. No pericardial effusion. OTHER: Left thyroid lobe hypodensity, please correlate with thyroid ultrasound results. Infrarenal a bdominal aortic aneurysm, partially thrombosed and measuring up to 4.5 cm, not completely included in the scan. Suspected gallbladder calculi versus thick sludge. Atrophic pancreas. Osteopenia. No aggre ssive bone lesion. IMPRESSION: Right upper lobe elongated irregular infiltration measuring up to 2.4 cm as described above which cou ld represent an acute inflammatory/infectious process however underlying lesion cannot be excluded. R ecommend precautionary follow-up CT scan in 3 months for reassessment. Other findings as detailed abo ve.
== END | disposition home or self-care (01) ==
LOC: RADCTMAIN 07:56
PROVIDERS: ATTEND Internal Medicine
DX: R91.8 Other nonspecific abnormal finding of lung field (principal)
CPT/HCPCS: 82565; 84520; 71260; 36415; Q9967

== ENCOUNTER → 2022-02-05 | Outpatient (CLI) | payer MEDICARE, BC ==
--- NOTE | 2022-02-05 13:09 | US ---
EXAMINATION TYPE: US thyroid st tissue head/neck DATE OF EXAM: 02/05/2022 COMPARISON: CT 12/19/21 CLINICAL HISTORY: E04.[address] saw a nodule GLAND SIZE: Right Lobe: 4.3 x 1.7 x 1.7 cm Overall Parenchyma: homogenous Left Lobe: 5.1 x 1.6 x 1.6 cm Overall Parenchyma: homogeneous Isthmus Thickness: 0.2 cm NODULES RIGHT: # of nodules measured on right: 1 1. 0.8 X 0.6 x 0.6 cm, mid mid, solid or almost completely solid, hypoechoic nodule, which is wider than tall, with smooth margins, without echogenic foci. LEFT: # of nodules measured on left: 1 1. 1.9 X 1.8 x 1.4 cm, lower mid, mixed cystic and solid, isoechoic nodule, which is wider than jaun l, with ill-defined margins, without echogenic foci. TR 2 ISTHMUS: # of nodules measured in the isthmus: 0 Bilateral neck scanned, no evidence of lymphadenopathy. IMPRESSION: 1. No suspicious nodules. Follow-up as clinically indicated. 2017 ACR TI-RADS LEVEL: TR-RADS 2 - Not Suspicious: No FNA *Highest TI-RADS level nodule reported
== END | disposition home or self-care (01) ==
LOC: RADUSWWP 09:35
PROVIDERS: ATTEND Internal Medicine
DX: E04.2 Nontoxic multinodular goiter (principal)
CPT/HCPCS: 76536